=== PATIENT | female | born 1960 | race Caucasian/White ===

== ENCOUNTER → 2017-10-01 | Outpatient (CLI) | payer OTHER ==
--- NOTE | 2017-10-01 15:22 | MAMMOGRAPHY REPORT ---
BILATERAL DIGITAL SCREENING MAMMOGRAM TOMOSYNTHESIS WITH CAD: 10/01/2017 CLINICAL HISTORY: Routine screening. Patient has no complaints. TECHNIQUE: Breast tomosynthesis in addition to standard 2D mammography was performed. Current study was also evaluated with a Computer Aided Detection (CAD) system. COMPARISON: Comparison is made to exam dated: 05/03/2014 mammogram - [facility]. BREAST COMPOSITION: The tissue of both breasts is almost entirely fatty. FINDINGS: There is a stable intramammary lymph node in the right upper outer quadrant posteriorly, th at is unchanged in size dating back to at least 07/20/2008. No new suspicious mass, architectural dis tortion or cluster of microcalcifications is seen. IMPRESSION: ACR BI-RADS CATEGORY 1: NEGATIVE There is no mammographic evidence of malignancy. A 1 year screening mammogram is recommended. The pa tient will receive written notification of the results. Approximately 10% of breast cancers are not detected with mammography. A negative mammographic report should not delay biopsy if a clinically suggestive mass is present. Mandy Goodrich M.D. ay/:10/01/2017 13:38:12 Track And Field Coach: Karina LEBLANC(Prabha)([place]), [facility] letter sent: Normal 1/2 BI-RADS Code: ACR BI-RADS Category 1: Negative
== END | disposition home or self-care (01) ==
LOC: C.MAMM 11:14
PROVIDERS: ATTEND Internal Medicine
DX: Z12.31 Encounter for screening mammogram for malignant neoplasm of breast (principal)

== ENCOUNTER 2020-10-29 16:45 | Observation (INO) ==
--- NOTE | 2020-10-29 17:13 | Emergency Department Note ---
History of Present Illness General Chief complaint: Neuro Symptoms/Deficit Stated complaint: NUMBNESS ON LEFT SIDE OF BODY Time Seen by Provider: 10/29/20 16:57 Source: patient History of Present Illness Provider complaint: Numbness to the left side of her body Onset (ago): week(s) Location: face, chest, upper extremity, lower extremity and left Pain Consistency: + intermittent Quality: + other (Feels like her limbs are asleep) Relieved By: + none Exacerbated By: + none Associated symptoms: + shortness of breath (Chronic with exertion from sarcoidosis); no chest pain, no cough, no fever/chills, no headaches, no nausea/vomiting and no weakness This is a 60-year-old female with a history of sarcoidosis presenting with numbness to the left side of her body. She states it first occurred about 2 weeks ago and she had numbness to the left arm which then spread throughout her entire left side including her face and trunk. She states initially she gets a warm then cold feeling and then she feels like the left side of her body is asleep. No modifying factors. Her symptoms are intermittent and are now gone. She had an episode 2 days ago and then she started having episodes again today starting at 10. She has asymptomatic currently. She states that she has no trouble with her speech, vision, walking, swallowing or any weakness to the left side of her body. She states that she had a carotid ultrasound which showed less than 50% stenosis bilaterally. She also had a stress echocardiogram which they could not complete because she could not get her heart rate up high enough. She also states she had an MRI done 3 days ago and she does not know the results. She denies any fever, cough or cold symptoms, chest pain, abdominal pain, vomiting, diarrhea or urinary symptoms. She does state that she has chronic shortness of breath with exertion due to her sarcoidosis. She denies any history of early stroke but does state that her father and brothers all had heart disease. She has never smoked. She is a retired nurse. Home Medications Medication Instructions Recorded Confirmed Type aspirin [Arthritis Pain Relief See Rx Instructions .ROUTE .COMPLEX 10/29/20 10/29/20 History (ASA)] cholecalciferol (vitamin D3) 25 mcg PO BID 10/29/20 10/29/20 History [Vitamin D3] diclofenac sodium 75 mg PO BID 10/29/20 10/29/20 History duloxetine 30 mg PO BID 10/29/20 10/29/20 History folic acid 1 mg PO BID 10/29/20 10/29/20 History hydrochlorothiazide 25 mg PO DAILY 10/29/20 10/29/20 History hydroxychloroquine 400 mg PO HS 10/29/20 10/29/20 History methotrexate sodium 10 mg PO WK 10/29/20 10/29/20 History metoprolol succinate 25 mg PO DAILY 10/29/20 10/29/20 History nortriptyline 75 mg PO DAILY 10/29/20 10/29/20 History omeprazole 20 mg PO QAM 10/29/20 10/29/20 History omeprazole [Prilosec] 20 mg PO DAILY 10/29/20 10/29/20 History Allergies Allergy/AdvReac Type Severity Reaction Status Date / Time Antifungal - Imidazole Allergy Severe Rash Verified 10/29/20 17:42 prednisone Allergy Severe Unknown Verified 10/29/20 17:42 Sulfa (Sulfonamide Allergy Severe Hives Verified 10/29/20 17:42 Antibiotics) morphine AdvReac Intermediate Confusion Verified 10/29/20 17:42 narcotics AdvReac Intermediate Confusion Uncoded 10/29/20 17:42 Past Med/Surg History Medical History Hypertension Sarcoidosis Family History (Updated 10/29/20 @ 17:17 by Abad Underwood MD) Brother Coronary heart disease Brother Coronary heart disease Father Coronary heart disease Social History Smoking Status: Never smoker Second Hand Exposure: Yes; Do You Dip or Chew Tobacco: No; Tobacco Cessation Education Requested by Patient: No Hx Alcohol Use: Yes Alcohol type: beer, wine and hard liquor Hx Substance Use: No Preferred Language: Ghanaian Communication Ability: Effective Choreography Director Required: No Beliefs That Will Affect Care: None Current Living Situation: Alone Other Information That Helps Us Care for You: No Feels Safe at Home: Yes Safety Concerns: Feels Safe At This Time Assistive Devices: Glasses Review of Systems See HPI for pertinent positives & negatives. and A total of 10 systems reviewed and were otherwise negative Physical Exam Vital Signs Vital Signs - 24 hr 10/29/20 16:49 10/29/20 19:25 10/29/20 19:46 Temperature 36.1 C L Temperature Source Temporal Artery Scan Pulse Rate 88 Pulse Rate [Apical] 93 H 99 H Pulse Rhythm [Apical] Regular Regular Pulse Strength [Apical] Normal Normal Respiratory Rate 18 18 18 Respiratory Effort / Characteristics Non-Labored Non-Labored Respiratory Depth Normal Normal Respiratory Pattern Regular Regular Blood Pressure 161/90 H Blood Pressure [Left Arm] 206/105 H 187/103 H Blood Pressure Mean 113 Blood Pressure Mean [Left Arm] 138 131 Blood Pressure Position [Left Arm] Sitting Sitting Pulse Oximetry 99 100 99 Oxygen Delivery Method Room Air Room Air Room Air Sepsis Recent Fever Within 48 Hours No Sepsis New/Unexplained Change in Mental Status No Sepsis Action Taken by Nursing No Action Required Constitutional: Vital signs reviewed. Eyes: Pupils are equal round reactive to light. Conjunctiva are noninjected. ENT: Pharynx is clear without erythema or exudate. Mucous membranes are moist. Neck supple without meningeal signs. Respiratory: Clear to auscultation bilaterally. Breath sounds are equal bilaterally. Cardiovascular: Regular rate and rhythm. No rubs or gallops. GI: Soft, nondistended and nontender. Bowel sounds are present. Musculoskeletal: No peripheral edema. No lower extremity tenderness. Integumentary: No cyanosis. or jaundice. Neurologic: The patient is awake and alert. Cranial nerves II-XII are intact. Motor is 5 out of 5 all extremities. Sensation is intact to light touch all extremities. Normal speech. No pronator drift. No limb ataxia. Psychiatric: Normal affect. Not anxious appearing. Course Administered Medications Discontinued Medications Ioversol (Optiray 350 500ml) 118 ml IV ONCE ONE Stop: 10/29/20 21:21 Last Admin: 10/29/20 21: Dose: 1 ml Documented by: [id number] Medical Decision Making Differential Diagnosis TIA, CVA, intracranial mass, neurosarcoidosis, neuropathy Medical Records Attestation: I reviewed the patient's medical records. I did perform a limited focused review of portions of the patient's old chart on the electronic medical record. The patient has had no recent pertinent visits to this hospital. I did obtain records from the [email or web address] system. She did have an MRI of the brain several days ago but no results is available for this. She did have carotid Dopplers on October 13 which demonstrated less than 50% stenosis of both internal carotid arteries. She had a dobutamine stress echocardiogram September 21 which was nondiagnostic due to lack of response to pharmacological stress likely from beta-janene therapy. Resting study demonstrates normal LV wall thickness with a EF of 60 to 64% and no significant valvular heart disease. Home Medications Current Medication List: was personally reviewed by me Laboratory Data Attestation: I reviewed the patient's lab results. Result diagrams: 10/29/20 17:36 10/29/20 17:36 Lab Results 10/29/20 10/29/20 10/29/20 Range/Units 17:36 17:36 17:36 WBC 6.34 (4.8-10.8) K/uL RBC 3.92 L (4.2-5.4) M/uL Hgb 13.3 (12.0-16.0) g/dL Hct 39.0 (37-47) % MCV 99.5 (80-100) fL MCH 33.9 (25-34) pg MCHC 34.1 (32-36) g/dL RDW Std Deviation 47.6 H (36.4-46.3) fL RDW Coeff of Carlie 13.4 (11.5-14.5) % Plt Count 325 (130-400) K/uL MPV 9.6 (7.4-10.4) fL Immature Gran % (Auto) 0.3 % Neut % (Auto) 63.8 % Lymph % (Auto) 15.6 % Harrison % (Auto) 13.6 % Eos % (Auto) 6.2 % Baso % (Auto) 0.5 % Neut # (Auto) 4.05 (1.4-6.5) K/uL Lymph # (Auto) 0.99 L (1.2-3.4) K/uL Harrison # (Auto) 0.86 H (0.11-0.59) K/uL Eos # (Auto) 0.39 (0-0.5) K/uL Baso # (Auto) 0.03 (0-0.2) K/uL Immature Gran # (Auto) 0.02 (0.00-0.02) K/uL PT 10.7 (9.0-12.0) Seconds INR 1.1 (0.9-1.1) APTT 25.4 (21.0-31.0) Seconds PTT Ratio 1.0 Sodium (136-145) mmol/L Potassium (3.5-5.1) mmol/L Chloride (98-107) mmol/L Carbon Dioxide (21-32) mmol/L Anion Gap (3-11) BUN (7-18) mg/dl Creatinine (0.6-1.2) mg/dl Est Cr Clr Drug Dosing ml/min Est GFR ( Amer) ml/min Est GFR (Non-Af Amer) ml/min BUN/Creatinine Ratio (10-20) Glucose (70-99) mg/dl Calcium (8.5-10.1) mg/dl Magnesium (1.8-2.4) mg/dl Total Bilirubin (0.2-1) mg/dl AST (15-37) U/L ALT (12-78) U/L Alkaline Phosphatase (45-117) U/L Troponin I (0-0.045) ng/ml Total Protein (6.4-8.2) gm/dl Albumin (3.4-5.0) gm/dl Globulin (2.5-4.0) gm/dl Albumin/Globulin Ratio (0.9-2) COVID-19 Eval Order SARS-CoV-2 (PCR) (Negative) Blood Type O Positive Antibody Screen NEGATIVE 10/29/20 10/29/20 10/29/20 Range/Units 17:36 20:18 20:18 WBC (4.8-10.8) K/uL RBC (4.2-5.4) M/uL Hgb (12.0-16.0) g/dL Hct (37-47) % MCV (80-100) fL MCH (25-34) pg MCHC (32-36) g/dL RDW Std Deviation (36.4-46.3) fL RDW Coeff of Carlie (11.5-14.5) % Plt Count (130-400) K/uL MPV (7.4-10.4) fL Immature Gran % (Auto) % Neut % (Auto) % Lymph % (Auto) % Harrison % (Auto) % Eos % (Auto) % Baso % (Auto) % Neut # (Auto) (1.4-6.5) K/uL Lymph # (Auto) (1.2-3.4) K/uL Harrison # (Auto) (0.11-0.59) K/uL Eos # (Auto) (0-0.5) K/uL Baso # (Auto) (0-0.2) K/uL Immature Gran # (Auto) (0.00-0.02) K/uL PT (9.0-12.0) Seconds INR (0.9-1.1) APTT (21.0-31.0) Seconds PTT Ratio Sodium 140 (136-145) mmol/L Potassium 4.1 (3.5-5.1) mmol/L Chloride 108 H (98-107) mmol/L Carbon Dioxide 29 (21-32) mmol/L Anion Gap 3.0 (3-11) BUN 17 (7-18) mg/dl Creatinine 0.82 (0.6-1.2) mg/dl Est Cr Clr Drug Dosing 86.0 ml/min Est GFR ( Amer) 90.1 ml/min Est GFR (Non-Af Amer) 77.8 ml/min BUN/Creatinine Ratio 20.1 H (10-20) Glucose 100 H (70-99) mg/dl Calcium 9.0 (8.5-10.1) mg/dl Magnesium 2.2 (1.8-2.4) mg/dl Total Bilirubin 0.4 (0.2-1) mg/dl AST 20 (15-37) U/L ALT 28 (12-78) U/L Alkaline Phosphatase 40 L (45-117) U/L Troponin I < 0.015 (0-0.045) ng/ml Total Protein 7.5 (6.4-8.2) gm/dl Albumin 3.7 (3.4-5.0) gm/dl Globulin 3.8 (2.5-4.0) gm/dl Albumin/Globulin Ratio 1.0 (0.9-2) COVID-19 Eval Order Covid19 at [facility] SARS-CoV-2 (PCR) NEGATIVE (Negative) Blood Type Antibody Screen Imaging Data Radiologist's Impression: Head CT 10/29/20 17:26 CT OF THE HEAD WITHOUT CONTRAST CLINICAL HISTORY: left sided weakness eval for cva COMPARISON STUDY: No previous studies for comparison. CT DOSE: 537.48 mGy.cm TECHNIQUE: Helical axial images of the head were obtained without IV contrast. Automated exposure control was utilized for the study. A dose lowering technique was utilized adhering to the principles of ALARA. FINDINGS: No acute intracranial hemorrhage, midline shift or mass effect is p resent. The ventricular system is unremarkable. The basal cisterns are patent. No extra-axial collections are present. There are no findings to suggest acute dural sinus thrombosis or acute territorial infarct. No significant calvarial abnormalities are present. Visualized portions of the sinuses and mastoid air cells are clear. IMPRESSION: No acute intracranial findings. ACT 112: Negative or not required by law. Electronically signed by: Dave Grayson M.D. 10/29/2020 5:55 PM MDM Narrative I did evaluate the patient as noted above. The patient is presenting with i ntermittent left-sided numbness for the past 2 weeks. She states the episodes are more persistent today and have been going on and off all day since 10 AM. She is currently without symptoms and is neurologically intact. IV access was established. I did place an order for continuous cardiac monitoring. The monitor showed normal sinus rhythm at a rate of 90 bpm. I did order and review the patient's blood work as noted in the electronic medical record. CBC and electrolytes are unremarkable other than a chloride of 108. I did order a CT of the head. I did review the images myself as well as the radiology report as described above. There is no evidence of acute infarct. I did reassess patient. She is currently asymptomatic. I did discuss the test results with her. She is having worsening repeated episodes of left-sided numbness. I did attempt to get her MRI results from the [email or web address] system but they were not available. She will be hospitalized for further care and evaluation as well as an MRI of the brain. I did discuss the case with the hospitalist and family service caseworker. Impression & Plan Left sided numbness Discharge Plan Visit Data Chief Complaint: Neuro Symptoms/Deficit Stated Complaint: NUMBNESS ON LEFT SIDE OF BODY ED Provider: Abad Underwood Discharge Problem: Left sided numbness Patient Disposition: Admitted As Inpatient Discharge Instructions Interventions: ED Discharge Assessment Last Done: 10/29/20 21:46
--- NOTE | 2020-10-29 17:56 | CT Scan Report ---
CT OF THE HEAD WITHOUT CONTRAST CLINICAL HISTORY: left sided weakness eval for cva COMPARISON STUDY: No previous studies for comparison. CT DOSE: 537.48 mGy.cm TECHNIQUE: Helical axial images of the head were obtained without IV contrast. Automated exposure con trol was utilized for the study. A dose lowering technique was utilized adhering to the principles o f ALARA. FINDINGS: No acute intracranial hemorrhage, midline shift or mass effect is present. The ventricular system is unremarkable. The basal cisterns are patent. No extra-axial collections are present. There are no findings to suggest acute dural sinus thrombosis or acute territorial infarct. No significant calvarial abnormalities are present. Visualized portions of the sinuses and mastoid air cells are randee ar. IMPRESSION: No acute intracranial findings. ACT 112: Negative or not required by law. Electronically signed by: Dave Grayson M.D. 10/29/2020 5:55 PM
[2020-10-29 18:09] LABS: INR 1.1 (0.9-1.1); Partial Thromboplastin Time 25.4 Seconds (21.0-31.0); Prothrombin Time 10.7 Seconds (9.0-12.0)
[2020-10-29 18:16] LABS: Alanine Aminotransferase 28 U/L (12-78); Albumin Level 3.7 gm/dl (3.4-5.0); Aspartate Aminotransferase 20 U/L (15-37); BUN Creatinine Ratio 20.1 (10-20); Blood Urea Nitrogen 17 mg/dl (7-18); Carbon Dioxide 29 mmol/L (21-32); Chloride 108 mmol/L (98-107); Est GFR (African American) 90.1 ml/min; Est GFR (Non-African American) 77.8 ml/min; Glucose 100 mg/dl (70-99); Magnesium 2.2 mg/dl (1.8-2.4); Potassium 4.1 mmol/L (3.5-5.1); Sodium 140 mmol/L (136-145)
[2020-10-29 18:21] LABS: Alkaline Phosphatase 40 U/L (45-117); Bilirubin,Total 0.4 mg/dl (0.2-1); Globulin 3.8 gm/dl (2.5-4.0); Total Protein 7.5 gm/dl (6.4-8.2); Troponin I < 0.015 ng/ml (0-0.045)
[2020-10-29 18:43] LABS: Basophils # (auto) 0.03 K/uL (0-0.2); Basophils % (auto) 0.5 %; Eosinophils # (auto) 0.39 K/uL (0-0.5); Eosinophils % (auto) 6.2 %; Hemoglobin 13.3 g/dL (12.0-16.0); Immature Granulocytes # (auto) 0.02 K/uL (0.00-0.02); Immature Granulocytes % (auto) 0.3 %; Lymphocytes # (auto) 0.99 K/uL (1.2-3.4); Lymphocytes % (auto) 15.6 %; Mean Corpuscular Hemoglobin 33.9 pg (25-34); Mean Corpuscular Hgb Conc 34.1 g/dL (32-36); Mean Corpuscular Volume 99.5 fL (80-100); Mean Platelet Volume 9.6 fL (7.4-10.4); Monocytes # (auto) 0.86 K/uL (0.11-0.59); Monocytes % (auto) 13.6 %; Neutrophils # (auto) 4.05 K/uL (1.4-6.5); Neutrophils % (auto) 63.8 %; Platelet Count 325 K/uL (130-400); RDW Coefficient of Variation 13.4 % (11.5-14.5); RDW Standard Deviation 47.6 fL (36.4-46.3); Red Blood Count 3.92 M/uL (4.2-5.4); White Blood Count 6.34 K/uL (4.8-10.8)
[2020-10-29] MEDS ORDERED: LABETALOL HCL IV 5 MG/ML 20ML IV STA (19:33)
[2020-10-29] MEDS ORDERED: ASPIRIN 81 MG CHEW PO STA (20:33)
[2020-10-29] MEDS ORDERED: OPTIRAY 350 500ml IV ONE (21:20)
[2020-10-29] MEDS ORDERED: LABETALOL HCL IV 5 MG/ML 20ML IV PRN (21:57)
[2020-10-29] MEDS ORDERED: ONDANSETRON INJ 2 MG/ML 2 ML VIAL IV PRN (21:57)
[2020-10-29] MEDS ORDERED: POLYETHYLENE (MIRALAX) 17 GM PACK PO PRN (21:57)
[2020-10-29] MEDS ORDERED: PHARMACIST DISCHARGE MED REC CONSULT PRN (21:57)
[2020-10-29] MEDS ORDERED: NITROGLYCERIN SL 0.4 MG/TAB TAB SL PRN (21:57)
[2020-10-29] MEDS ORDERED: HYDROXYCHLOROQUINE SULFATE 200 MG TAB PO SCH (21:57)
[2020-10-29] MEDS: CHOLECALCIFEROL 1,000 UNITS 25 MCG TAB PO SCH (22:51)
[2020-10-29] MEDS: DULoxetine HCL 30 MG CAP PO SCH (22:52)
[2020-10-29] MEDS: FOLIC ACID 1 MG TAB PO SCH (22:52)
[2020-10-29] MEDS ORDERED: METOPROLOL SUCC 25MG EXT REL TAB PO SCH (23:15)
[2020-10-29] MEDS ORDERED: NORTRIPTYLINE HCL 25 MG CAP PO SCH (23:15)
[2020-10-29] MEDS: SODIUM CHLORIDE 0.9% 1000ML 1,000 ML IV SCH (23:19)
[2020-10-29] MEDS: ACETAMINOPHEN 325 MG TAB PO PRN (23:19)
--- NOTE | 2020-10-29 23:22 | History and Physical Report ---
DATE OF ADMISSION: 10/29/2020 CHIEF COMPLAINT: Left-sided numbness on and off. HISTORY OF PRESENT ILLNESS: This 60-year-old female with past medical history significant for pulmonary sarcoidosis, hypertension, diastolic dysfunction, cardiac sarcoidosis, paroxysmal supraventricular tachycardia, GERD, lumbar radiculopathy, chronic radicular pain of lower back. The patient comes because of feeling left-sided numbness on and off since the last 2 weeks. The whole left-sided face is numb, but she can move her extremities and no weakness, and she can yield clerk her hands. She just feels that whole left side going to sleep, but today it is more persistent, so she came to the ER for this. She also as per [facility] notes on 09/13 when she saw her manager drilling, she also complained of same issue at that time. She also had a stress test, which was nondiagnostic and there is a plan for a nuclear stress test. An MRI scan of the brain was done on 10/26/2020, results are still pending, but the patient got worried today and came to the ER. Currently, the symptoms resolved. Resting comfortably, hemodynamically stable. Blood pressure is elevated. Denies any headache. No blurred visions. She says she always has some earache, some runny nose, no sore throat, no cough, no difficulty swallowing. Speech is clear. Ambulating okay. Once in a while, she has some imbalance, but that is nothing new. She has chronic shortness of breath from her sarcoidosis and chronic cough from her sarcoidosis.Currently, no chest pain, no nausea, no abdominal pain, no diarrhea or constipation. Normal bladder movements. She has some skin rash related to sarcoidosis. ALLERGIES: ANTIFUNGAL IMIDAZOLE, PREDNISONE, SULFA ANTIBIOTICS, MORPHINE, NARCOTICS. PAST MEDICAL HISTORY: As mentioned above. PAST SURGICAL HISTORY: Lung biopsy, tonsillectomy. MEDICATIONS: The patient is on vitamin D 25 mcg p.o. b.i.d., diclofenac sodium 75 mg p.o. b.i.d., duloxetine 30 mg p.o. b.i.d., folic acid 1 mg p.o. b.i.d., hydrochlorothiazide 25 mg p.o. daily, hydroxychloroquine 400 mg at bedtime, methotrexate 10 mg p.o. weekly, Toprol-XL 25 mg p.o. daily, nortriptyline 75 mg p.o. daily, omeprazole 20 mg daily. FAMILY HISTORY: Significant for father has arthritis, prostate cancer, CABG, hypertension, stroke. Mother had skin cancer, diabetes. Sister has cancer. Brother has heart disease. SOCIAL HISTORY: , lives alone. Smoked for a short time at the age of 15. Alcohol rarely. No drug use. REVIEW OF SYMPTOMS: As per HPI. Rest of the review of systems is negative. PHYSICAL EXAMINATION: GENERAL: The patient is morbidly obese, not in acute distress. VITAL SIGNS: Temperature 36.1, pulse 99, respiratory rate 18, blood pressure 187/103, oxygen 99% on room air. HEENT: Pupils equal, round, and reactive to light. Oral mucosa moist. NECK: No JVD. No neck masses. CARDIOVASCULAR: S1, S2 heard, regular rate and rhythm, no murmur, no gallop. RESPIRATORY SYSTEM: Normal AP diameter. No accessory muscle use. No wheezing, no crackles. ABDOMEN: Soft, bowel sounds present, nontender. No distention. CENTRAL NERVOUS SYSTEM: Alert and oriented. No facial droop. Speech is clear. Power 5/5 in all extremities. Sensation is intact. No pronator drift. Insight is good. EXTREMITIES: No edema. Some slight erythematous rash seen in the left ankle and tapia region. LABORATORY DATA: WBC 6, hemoglobin 13.3, hematocrit 39, platelets 325. PT 10.7, INR 1.1, APTT 25.4. Sodium 140, potassium 4.1, chloride 108, bicarbonate 29, BUN 17, creatinine 0.8, serum glucose 100, calcium 9, magnesium 2.2, total bilirubin 0.4, AST 20, ALT 28, alkaline phosphatase 40. Troponin I less than 0.015. SARS-CoV-2 PCR pending. IMAGING DATA: CT of the head, no acute intracranial findings. ASSESSMENT AND PLAN: A 60-year-old female who presents with left-sided numbness. 1. Left-sided numbness ongoing for some time on and off, today it is more persistent, but currently resolved. Initial CT was okay. The patient had an MRI scan on 10/26, the results are still pending, but it was a noncontrast study. We will do MRI scan with and without contrast and CT angiogram of the head and neck and echocardiogram. Start her on aspirin. Monitor on telemetry. Consult neurology in a.m. for further recommendation. The patient has also a history of sarcoidosis. 2. History of pulmonary sarcoidosis and cardiac sarcoidosis and cutaneous sarcoidosis, on methotrexate and also Plaquenil.Recently saw cariology. 3. Hypertension, on Toprol-XL and hydrochlorothiazide. We will monitor the blood pressure. Currently, the blood pressure is elevated. We will place her on IV labetalol p.r.n. 4. History of paroxysmal supraventricular tachycardia, on Toprol-XL. We will monitor. 5. History of diastolic congestive heart failure, on hydrochlorothiazide. We will monitor for any volume overload. 6. Gastroesophageal reflux disease, on omeprazole. 7. Chronic pain. We will hold Voltaren for now. We will monitor. 8. Obesity, needs counseling. 9. Deep venous thrombosis prophylaxis, sequential compression devices for now. DISPOSITION: Monitor in the tele floor. PT and OT prior to discharge. Social service to help with discharge planning. FELIZ
[2020-10-30 06:46] LABS: Basophils # (auto) 0.04 K/uL (0-0.2); Basophils % (auto) 0.6 %; Eosinophils # (auto) 0.36 K/uL (0-0.5); Eosinophils % (auto) 5.3 %; Hematocrit (blood only) 37.2 % (37-47); Hemoglobin 12.4 g/dL (12.0-16.0); Immature Granulocytes # (auto) 0.01 K/uL (0.00-0.02); Immature Granulocytes % (auto) 0.1 %; Lymphocytes # (auto) 1.46 K/uL (1.2-3.4); Lymphocytes % (auto) 21.6 %; Mean Corpuscular Hemoglobin 33.2 pg (25-34); Mean Corpuscular Hgb Conc 33.3 g/dL (32-36); Mean Corpuscular Volume 99.5 fL (80-100); Mean Platelet Volume 9.6 fL (7.4-10.4); Monocytes # (auto) 0.88 K/uL (0.11-0.59); Neutrophils # (auto) 4.01 K/uL (1.4-6.5); Neutrophils % (auto) 59.4 %; Platelet Count 308 K/uL (130-400); RDW Coefficient of Variation 13.5 % (11.5-14.5); RDW Standard Deviation 48.3 fL (36.4-46.3); Red Blood Count 3.74 M/uL (4.2-5.4); White Blood Count 6.76 K/uL (4.8-10.8)
[2020-10-30 07:23] LABS: Calcium 8.3 mg/dl (8.5-10.1); Creatinine Clr Calc Pharmacy 110.3 ml/min; Est GFR (Non-African American) 97.5 ml/min; Potassium 3.5 mmol/L (3.5-5.1)
[2020-10-30] MEDS: CHOLECALCIFEROL 1,000 UNITS 25 MCG TAB PO SCH (07:52)
[2020-10-30] MEDS: DULoxetine HCL 30 MG CAP PO SCH (07:52)
[2020-10-30] MEDS: FOLIC ACID 1 MG TAB PO SCH (07:52)
--- NOTE | 2020-10-30 07:52 | CT Scan Report ---
CT ANGIOGRAM OF THE BRAIN; CT ANGIOGRAM OF THE NECK CLINICAL HISTORY: Left-sided weakness. COMPARISON STUDY: Unenhanced CT of the brain performed the same day 10/29/2020. TECHNIQUE: Following the IV administration of 116 of Optiray 350, CT angiogram of the head and neck w as performed from the aortic arch to the vertex. Images are reviewed in the axial, sagittal, and yeison nal planes. 3-D MIPS images are created and assessed. IV contrast was administered without complicati on. All measurements were calculated based on NASCET criteria. A dose lowering technique was utilize d adhering to the principles of ALARA. CT DOSE: 520.70 mGy.cm FINDINGS: Brain parenchyma: The brain parenchyma is normal in appearance. There is no hemorrhage, mass effect, or evidence of acute territorial ischemia by CT criteria. There is no evidence of enhancing mass lesi on on the angiogram phase images. The ventricles, sulci, and cisterns are normal in configuration. Gr ay-white matter differentiation is preserved. No extra-axial fluid collection is seen. Thoracic aorta: Visualized portions of the thoracic aorta are normal in caliber. The aortic arch demo nstrates standard 3-vessel anatomy. Right carotid arterial system: The right common carotid artery is widely patent, as are the right int ernal and external carotid arteries. Mild plaque is seen in the carotid bulb. Left carotid arterial system: The left common carotid artery is widely patent, as are the left fashion intern al and extra carotid arteries. Plaque is noted in the left carotid bulb. Vertebral arteries: The vertebral arteries are widely patent bilaterally noting a right-sided dominan ce. Subclavian arteries: Patent bilaterally. There is less than 50% stenosis of the left subclavian arter y below the thoracic outlet. Intracranial vasculature: There is atherosclerotic calcification of the cavernous carotid and vertebr al arteries. The internal carotid arteries are patent at the skull base, as are the anterior and midd le cerebral arteries bilaterally. The vertebrobasilar system and posterior cerebral arteries are wide ly patent. The right vertebral artery is dominant. There is no aneurysm, high-grade stenosis, or foca l vessel cut off seen throughout the intracranial circulation. Jugular veins: Patent bilaterally. Dural sinuses: Patent. Lung apices: Partially visualized upper lobe lung parenchyma appears clear. Soft tissues: The visualized pharyngeal soft tissues are normal in appearance noting angiographic pha se technique. The oropharyngeal airway appears widely patent. The salivary and thyroid glands are nor mal in appearance. No cervical lymphadenopathy is seen. Skeletal structures: The skeletal structures are osteopenic. The calvarium appears intact. The cervic al spine is within normal limits. No lytic or blastic lesion is seen. Orbits: The bony orbits are intact. Orbital contents are normal as visualized. Sinuses and mastoids: The paranasal sinuses are clear. The mastoid air cells are well pneumatized. IMPRESSION: 1 There is no evidence of hemorrhage, mass effect, or acute territorial ischemia by CT criteria notin g angiographic phase technique. 2. Unremarkable CT angiogram of the brain. 3. Unremarkable CT angiogram of the neck. ACT 112: Negative or not required by law. Electronically signed by: Ramu Inman M.D. 10/30/2020 7:50 AM
[2020-10-30] MEDS: ACETAMINOPHEN 325 MG TAB PO PRN ×2 (07:54→13:00)
[2020-10-30] MEDS ORDERED: metHOTREXate sodium 2.5 MG TAB PO SCH (08:30)
--- NOTE | 2020-10-30 08:47 | Discharge Summary ---
Date of Service October 30, 2020 Admission HPI Per Admitting Provider 60-year-old female with past medical history significant for pulmonary sarcoidosis, hypertension, diastolic dysfunction, cardiac sarcoidosis, paroxysmal supraventricular tachycardia, GERD, lumbar radiculopathy, chronic radicular pain of lower back. The patient comes because of feeling left-sided numbness on and off since the last 2 weeks. The whole left-sided face is numb, but she can move her extremities and no weakness, and she can oil winterizer her hands. She just feels that whole left side going to sleep, but today it is more persistent, so she came to the ER for this. She also as per [facility] notes on 09/13 when she saw her bag grader, she also complained of same issue at that time. She also had a stress test, which was nondiagnostic and there is a plan for a nuclear stress test. An MRI scan of the brain was done on 10/26/2020, results are still pending, but the patient got worried today and came to the ER. Currently, the symptoms resolved. Resting comfortably, hemodynamically stable. Blood pressure is elevated. Denies any headache. No blurred visions. She says she always has some earache, some runny nose, no sore throat, no cough, no difficulty swallowing. Speech is clear. Ambulating okay. Once in a while, she has some imbalance, but that is nothing new. She has chronic shortness of breath from her sarcoidosis and chronic cough from her sarcoidosis.Currently, no chest pain, no nausea, no abdominal pain, no diarrhea or constipation. Normal bladder movements. She has some skin rash related to sarcoidosis. Admission Exam Per Admitting Provider PHYSICAL EXAMINATION: GENERAL: The patient is morbidly obese, not in acute distress. VITAL SIGNS: Temperature 36.1, pulse 99, respiratory rate 18, blood pressure 187/103, oxygen 99% on room air. HEENT: Pupils equal, round, and reactive to light. Oral mucosa moist. NECK: No JVD. No neck masses. CARDIOVASCULAR: S1, S2 heard, regular rate and rhythm, no murmur, no gallop. RESPIRATORY SYSTEM: Normal AP diameter. No accessory muscle use. No wheezing, no crackles. ABDOMEN: Soft, bowel sounds present, nontender. No distention. CENTRAL NERVOUS SYSTEM: Alert and oriented. No facial droop. Speech is clear. Power 5/5 in all extremities. Sensation is intact. No pronator drift. Insight is good. EXTREMITIES: No edema. Some slight erythematous rash seen in the left ankle and tapia region. Principal Diagnosis 1. Left-sided numbness 2. Pulmonary sarcoidosis and cardiac sarcoidosis and cutaneous sarcoidosis, on methotrexate and also Plaquenil. Recently saw cariology. 3. Hypertension 4. History of paroxysmal supraventricular tachycardia 5. History of diastolic congestive heart failure 6. Gastroesophageal reflux disease 7. Chronic pain 8. Obesity, Discharge Exam ROS-No Headache, No Visual Changes, No Nausea, No Vomiting, No Fever, No Chills, No Neck Pain or Stiffness, No Chest Pain, No Palpitations, No SOB, No NGUYEN, No Cough, No Sputum, No Wheezing, No Abdominal Pain, No Diarrhea, No Hematemesis, No Hemoptysis, No Unexpected Weight Loss, No Flank pain, No Melena, No Hematochezia, No Frequency, No Urgency, No Burning, No Hematuria, No Rashes, No Diaphoresis. Appetite is Normal Physical Exam Gen-AAO x 3, NAD, Afebrile, obese Head-NCAT, EOMI, PERRLA, Anicteric Sclera, No Posterior Pharyngeal Erythema Neck-Supple, No JVD, No Thyromegaly, No Masses, No LAD, No Bruits Lungs-Clear to Auscultation Bilaterally, No Rales, No Rhonchi, No Wheezing, No Crepitus Chest-No S4, +S1, +S2, No S3, No Murmurs, No Rubs, No Gallops, No Ectopy Abdomen-Soft, Bowel Sounds Present, Non Tender, Non Distended, No Hepatomegaly, No Splenomegaly, No Palpable Masses, No Rebound, No Rigidity, No Guarding Musculoskeletal-Full Range of Motion Bilaterally, No CVAT Extremities-No Cyanosis, No Clubbing, No Edema Nuero-Cranial Nerves II-XII grossly intact, Motor WNL, DTRs WNL, Strength WNL, Non Focal Psych-Normal Mood Discharge Data Allergies Allergy/AdvReac Type Severity Reaction Status Date / Time Antifungal - Imidazole Allergy Severe Rash Verified 10/29/20 17:42 prednisone Allergy Severe Unknown Verified 10/29/20 17:42 Sulfa (Sulfonamide Allergy Severe Hives Verified 10/29/20 17:42 Antibiotics) morphine AdvReac Intermediate Confusion Verified 10/29/20 17:42 narcotics AdvReac Intermediate Confusion Uncoded 10/29/20 17:42 Consultations 10/29/20 19:34 ED Decision to Admit Stat 10/30/20 08:00 Consult Neurology Routine Ordered Studies 10/29/20 17:26 CT head/brain wo con Stat 10/29/20 20:53 CT angio head w con Urgent CT angio neck with con Urgent 10/30/20 20:55 MR brain wo/w con Urgent Allergies Antifungal - Imidazole Allergy (Severe, Verified 10/29/20 17:42) Rash prednisone Allergy (Severe, Verified 10/29/20 17:42) Unknown Sulfa (Sulfonamide Antibiotics) Allergy (Severe, Verified 10/29/20 17:42) Hives morphine Adverse Reaction (Intermediate, Verified 10/29/20 17:42) Confusion narcotics Adverse Reaction (Intermediate, Uncoded 10/29/20 17:42) Confusion Height/Weight/Isolation Height 5 ft 2 in Weight 108.8 kg Chemistry 10/29/20 10/30/20 17:36 05:53 Sodium 140 142 Potassium 4.1 3.5 Chloride 108 H 108 H Carbon Dioxide 29 28 Anion Gap 3.0 5.0 BUN 17 13 Creatinine 0.82 0.63 Glucose 100 H 85 Hospital Course (1) Left sided numbness: (2) Hypertension: (3) Sarcoidosis: Patient's symptoms are gone, await Neuro input before DC Total Time Total Time Spent Total Time Spent (In Minutes): 45 min Total Time Includes: Examination of the Patient, Discharge Planning, Medication Reconciliation and Communication With Other Providers Discharge Plan Discharge Items Patient Disposition: Home - Self-Care Reason For Visit: NEURO SYMPTOMS Discharge Diagnosis: 1. Left-sided numbness/TIA 2. Pulmonary sarcoidosis and cardiac sarcoidosis and cutaneous sarcoidosis, on methotrexate and also Plaquenil. Recently saw cariology. 3. Hypertension 4. History of paroxysmal supraventricular tachycardia 5. History of diastolic congestive heart failure 6. Gastroesophageal reflux disease 7. Chronic pain 8. Obesity, Condition on Discharge: Good Activity: Resume your previous activity Lifting: Gradually increase as tolerated Bathing: No limitations Sexual Activity: When tolerated Exercise/Sports: Gradually increase as tolerated Driving/Machine Use: No limitations Weightbearing: Full weightbearing Non-emergency contact: Primary Care Provider, Rn Hedis and Neurologist Call non-emergency contact if: you have any medication questions Follow-up/Referrals: Dangelo Laws MD [Primary Care Provider] - Yoly Major MD [Physician] - (2 weeks) Diet: Heart Healthy Addtl Attending Provider Instructions: none Pending Studies at Discharge: No Stand-Alone Forms: My [facility] All-Scrap, Smoking Cessation Medications and DC Order Prescriptions: New aspirin 81 mg Tablet,Delayed Release (Dr/Ec) 81 mg PO DAILY Qty: 90 RF: 0 clopidogrel [Plavix] 75 mg tablet 75 mg PO DAILY Qty: 21 RF: 0 atorvastatin 40 mg tablet 40 mg PO DAILY Qty: 30 RF: 0 Continued diclofenac sodium 75 mg tablet,delayed release (DR/EC) 75 mg PO BID RF: 0 duloxetine 30 mg capsule,delayed release(DR/EC) 30 mg PO BID RF: 0 folic acid 1 mg tablet 1 mg PO BID RF: 0 hydrochlorothiazide 25 mg tablet 25 mg PO DAILY RF: 0 metoprolol succinate 25 mg tablet extended release 24 hr 25 mg PO DAILY RF: 0 hydroxychloroquine 200 mg tablet 400 mg PO HS RF: 0 methotrexate sodium 2.5 mg tablet 10 mg PO WK RF: 0 omeprazole 20 mg capsule,delayed release(DR/EC) 20 mg PO QAM RF: 0 omeprazole [Prilosec] 20 mg Capsule,Delayed Release(Dr/Ec) 20 mg PO DAILY RF: 0 cholecalciferol (vitamin D3) [Vitamin D3] 25 mcg (1,000 unit) Tablet 25 mcg PO BID RF: 0 nortriptyline 75 mg capsule 75 mg PO DAILY RF: 0 Discharge Orders: Discharge Order (Routine); Ordered 10/30/20 Ordered By: Ike Gómez Admission Data Admit Date/Time: 10/29/20 20:26 Attending Provider: Ike Gómez Admit Provider: Doug Donaldson Primary Care Provider: Dangelo Laws Other Providers: Doug Donaldson ; Yoly Major
[2020-10-30] MEDS ORDERED: PANTOprazole 40 MG TAB PO SCH (09:00)
[2020-10-30] MEDS ORDERED: METOPROLOL SUCC 25MG EXT REL TAB PO SCH (09:00)
[2020-10-30] MEDS ORDERED: hydroCHLOROthiazide 25 MG TAB PO SCH (09:00)
[2020-10-30] MEDS ORDERED: ASPIRIN 81 MG ECTAB PO SCH (09:00)
[2020-10-30] MEDS ORDERED: NORTRIPTYLINE HCL 25 MG CAP PO SCH (09:00)
--- NOTE | 2020-10-30 10:36 | Electrocardiogram Report ---
Test Reason : Blood Pressure : / mmHG Vent. Rate : 081 BPM Atrial Rate : 081 BPM P-R Int : 168 ms QRS Dur : 106 ms QT Int : 408 ms P-R-T Axes : 070 026 061 degrees QTc Int : 473 ms Normal sinus rhythm Normal ECG No previous ECGs available Confirmed by Ace Alejo ([id number]) on 10/30/2020 10:36:20 AM Referred By: REFERRED SELF Confirmed By:Ace Alejo
[2020-10-30] MEDS: SODIUM CHLORIDE 0.9% 1000ML 1,000 ML IV SCH (11:11)
[2020-10-30] MEDS ORDERED: GADOBUTROL 10ML VIAL IV ONE (13:23)
--- NOTE | 2020-10-30 13:50 | Magnetic Resonance Report ---
MRI OF THE BRAIN COMBO CLINICAL HISTORY: Left-sided numbness. COMPARISON STUDY: CT of the brain dated 10/29/2020. TECHNIQUE: MRI of the brain was performed utilizing various T1 and T2-weighted sequences in the axial , sagittal, and coronal planes. Contrast-enhanced sequences were acquired following the administratio n of 10 cc of Gadavist. FINDINGS: Brain parenchyma: There is mild microangiopathic change. There is no hemorrhage or mass effect. There is no restricted diffusion to suggest acute ischemia. No enhancing mass lesion is identified on the postcontrast images. Masterson-white matter differentiation is preserved. No extra-axial fluid collection is seen. A small chronic lacunar infarct is noted in the right thalamus. The cerebellar tonsils are n ormal in configuration. Ventricles, sulci, and cisterns: Normal in configuration. Pituitary and sella: Unremarkable. Intracranial vasculature: Normal flow voids are maintained at the skull base. Orbits: The bony orbits are grossly intact. Orbital contents are normal in appearance. Sinuses and mastoids: Clear. Calvarium: Unremarkable. Cervical cord: Partially visualized cervical spinal cord is normal in morphology and signal intensity . IMPRESSION: No acute intracranial abnormality. ACT 112: Negative or not required by law. Electronically signed by: Ramu Inman M.D. 10/30/2020 1:48 PM
--- NOTE | 2020-10-30 14:37 | Consultation Report ---
DATE OF CONSULTATION: 10/30/2020 REASON FOR CONSULTATION: Numbness of the left body. HISTORY OF PRESENT ILLNESS: The patient is a 60-year-old right-handed female with a history of hypertension and sarcoidosis primarily affecting the lung and skin, diastolic dysfunction, cardiac sarcoidosis, paroxysmal SVT, reflux, lumbar radiculopathy, chronic radiculopathy. Intermittently for 2 weeks, the patient has been experiencing left-sided numbness. The patient indicates that typically this would occur in the face and then may spread to the hand or begin in the hand and spread to the face, it is both numbness and tingling. On one or more occasions, it has spread to the left leg. Typically, the symptoms are very transient, lasting less than 1 minute, but they have lasted up to 4 minutes. They have never been accompanied by a headache. The patient remotely has a history of migraine, but never had associated neurologic symptoms. She has otherwise been well. She has no history of transient ischemic attack or stroke. She is not known to have a neurosarcoidosis. She has not had other cranial neuropathies. No history of seizure. She has not recently had any head or neck trauma, medical or dental procedures and none of her medicines are new or changed in dose. The patient had an outpatient MRI of the brain on 10/26/2020 at [facility] [address], which has not been read, although I was able to view it briefly and it appeared unremarkable. This was a noncontrast study. Because of a lengthier episode the patient came to the Emergency Room today. Yesterday, her CT of the head, which I have reviewed, showed no acute abnormality. CTA of the head and neck were unremarkable without any high-grade stenosis. MRI of the brain with contrast has been ordered. The patient's EKG, sinus rhythm and echocardiogram showed normal LV chamber size and wall thickness, EF 60-65. No segmental wall motion abnormality, grade 1 diastolic dysfunction, poorly visualized valvular structures without significant stenosis or regurg. The interatrial septum is intact without evidence of an atrial septal defect, injection of contrast documented, no intraatrial shunt. Left atrium not well visualized. Aortic root not well visualized. LABORATORY DATA: Notable for red count of 3.9, H and H, platelet count were normal. PT, PTT normal. Glucose 100 nonfasting, total cholesterol 176, LDL 110, HDL 46. PAST MEDICAL HISTORY: As above. PAST SURGICAL HISTORY: Lung biopsy, tonsillectomy. ALLERGIES: IMIDAZOLE, PREDNISONE, SULFA, MORPHINE AND NARCOTICS. HOME MEDICINE: Vitamin D, diclofenac, duloxetine, folic acid, hydrochlorothiazide, hydroxychloroquine, methotrexate, p.o. Toprol, nortriptyline, omeprazole. FAMILY HISTORY: Father has arthritis, prostate cancer, bypass surgery, hypertension, stroke. Mother had skin cancer, diabetes. Sister, cancer. Brother, heart disease. Her son has sarcoidosis. SOCIAL HISTORY: The patient is and lives with her son. Remotely smoked, does not drink alcohol, no drug use. PHYSICAL EXAMINATION: VITAL SIGNS: 138/74, 82, 18, 36.6. GENERAL: The patient is awake and alert. Speech and language are normal and her affect is appropriate. NECK: There are no carotid bruits. HEART: No heart murmurs. Heart is regular rate and rhythm. NEUROLOGIC: Pupils are equal, round and reactive to light. The optic nerves are unremarkable. Normal monteiro, motility, facial sensation and facial symmetry. Motor 5/5, no drift. Normal rapid alternating movements. Symmetric reflexes. Downgoing toes. [id number] and [id number] are normal. Gait is antalgic. Sensation is intact to light touch and vibration. IMPRESSION: Small vessel transient ischemic attack, cannot exclude acephalgic migraine, although this seems unlikely and simple partial seizure is within the differential. The patient could have neurosarcoidosis, although this typically presents with the basilar meningitis and typically causes cranial neuropathies which the patient has no evidence of i.e., her symptoms exceeds the distribution of the cranial nerves. Therefore, I agree with the MRI of the brain with and without contrast. I would treat this as a transient ischemic attack with dual antiplatelet therapy, statin with a goal LDL of 70 or less. As an outpatient if she were to continue to have episodes in spite of risk factor modification, dual antiplatelet therapy, which parenthetically should be for 3 weeks and then Plavix discontinued then I would consider an EEG, a lumbar puncture could be helpful as well. I doubt any of those will be necessary. Defer to primary care as to whether a repeat echo, a better quality, should be performed. The patient should see me post discharge.
[2020-10-31 07:17] LABS: Estimated Average Glucose 103 mg/dl; Hemoglobin A1C 5.2 % (4.5-5.6)
--- NOTE | 2020-10-31 09:57 | Electrocardiogram Report ---
Test Reason : Blood Pressure : / mmHG Vent. Rate : 072 BPM Atrial Rate : 072 BPM P-R Int : 162 ms QRS Dur : 094 ms QT Int : 426 ms P-R-T Axes : 067 038 053 degrees QTc Int : 466 ms Normal sinus rhythm Normal ECG When compared with ECG of 29-OCT-2020 17:36, No significant change was found Confirmed by Ace Alejo ([id number]) on 10/31/2020 9:57:33 AM Referred By: REFERRED SELF Confirmed By:Ace Alejo
--- NOTE | 2020-11-21 12:49 | Coding Query ---
CODING QUERY To promote full compliance with coding requirements relating to patient care, provider participation is requested in all cases of crystallizer operator uncertainty. Please assist us with the question(s) below: Coding Question(s): Please provide further clarification regarding the presence of TIA during this admission. -- Please remember that we are unable to code a diagnosis of rule out, probable, possible, questionable or suspected. ___ TIA was present during this admission ___ TIA was not present during this admission _X__ Other, please clarify. It was never determined whether it was a TIA or acephalic/atypical migraine Physician's Response(s): Thank you Philomena Rudolph Principal Diagnosis: "that condition established after study, to be chiefly responsible for occasioning the admission of the patient to the hospital for care." Co-Existing Principal Diagnosis: "when two or more diagnoses equally meet the criteria for principal diagnosis as determined by the circumstances of admission, diagnostic work up, and/or therapy provided, and the Alphabetic Index, Tabular List, or another coding guideline does not provide sequencing direction, any one of the diagnoses may be sequenced first." "When the physician has documented what appears to be a current diagnosis in the body of the record, but has not included the diagnosis in the final diagnostic statement, the physician should be asked whether the diagnosis should be added." (Source [facility]oding [facility] 2 QTR90. p3-4) FELIZ
== END 2020-10-30 16:15 | disposition home or self-care (01) ==
LOC: ED 16:45 → 2S 16:45 → MERGE 20:26 → SUATTDRO 20:26 → 2S 21:46